=== PATIENT | male | born 1930 | race Caucasian/White ===

== ENCOUNTER 2016-08-01 07:38 | Day surgery (SDC) | payer MEDICARE ==
[2016-07-27 11:34] VITALS: BMI 29.0
[~2016-08-01 07:38] MED LIST: LACTATED RINGERS 1,000 ML IV SCH; LIDOCAINE 1% 20 ML VIAL (10MG/ML) FOR IV START INTRADERMA PRN
[2016-08-01 08:06] VITALS: TEMP 97.3
[2016-08-01] MEDS ORDERED: LIDOCAINE 1% 20 ML VIAL (10MG/ML) FOR IV START INTRADERMA ONE (08:15)
[2016-08-01] MEDS ORDERED: PROPOFOL 10 MG/ML 20 ML VIAL IV ONE (08:48)
--- NOTE | 2016-08-01 08:49 | P.GSHP ---
History of Present Illness H&P Date: 08/01/16 Chief Complaint: GERD This a 86-year-old male referred from Dr. Vickie frey. Patient presents today for EGD. He's had issues with GERD. The patient states he has had GERD for several years. His GERD has worsened over the last 6 months. - Constitutional Constitutional: Reports as per HPI Past Medical History Past Medical History: CVA/TIA, GERD/Reflux, Hyperlipidemia, Hypertension Additional Past Medical History / Comment(s): abdominal discomfort and gas pains History of Any Multi-Drug Resistant Organisms: None Reported Past Surgical History: Cholecystectomy, Coronary Bypass/CABG, Hernia Repair, Joint Replacement Additional Past Surgical History / Comment(s): aortic aneurysm repair, rt knee replacement Past Anesthesia/Blood Transfusion Reactions: No Reported Reaction Smoking Status: Former smoker Past Alcohol Use History: Occasional Additional Past Alcohol Use History / Comment(s): smoked 20 years <1ppd quit 1983 Past Drug Use History: None Reported - Past Family History Brother(s) Family Medical History: Cancer Additional Family Medical History / Comment(s): 1 brother-leukemia. 1 brother- renal cancer Medications and Allergies Home Medications Medication Instructions Recorded Confirmed Type Aspirin [Adult Low Dose Aspirin EC] 81 mg PO DAILY 07/27/16 08/01/16 History Clopidogrel [Plavix] 75 mg PO DAILY 07/27/16 08/01/16 History Lisinopril [Zestril] 10 mg PO DAILY 07/27/16 08/01/16 History Metoprolol Tartrate 25 mg PO BID 07/27/16 08/01/16 History Omeprazole [PriLOSEC] 20 mg PO AC-BID 07/27/16 08/01/16 History Simvastatin [Zocor] 20 mg PO DAILY 07/27/16 08/01/16 History Verapamil HCl [Verapamil ER] 180 mg PO DAILY 07/27/16 08/01/16 History Allergies Allergy/AdvReac Type Severity Reaction Status Date / Time No Known Allergies Allergy Verified 08/01/16 08:09 Surgical - Exam Vital Signs Temp Pulse Resp BP Pulse Ox 97.3 F L 71 18 139/77 94 L 08/01/16 08:04 08/01/16 08:04 08/01/16 08:04 08/01/16 08:04 08/01/16 08:04 - General well developed, no distress - Eyes PERRL - ENT normal pinna - Neck no masses - Respiratory normal expansion - Cardiovascular Rhythm: regular - Abdomen Abdomen: soft, non tender Assessment and Plan Plan: GERD. We'll perform EGD.
--- NOTE | 2016-08-01 09:01 | P.OP ---
Date of Procedure: 08/01/16 Preoperative Diagnosis: GERD Postoperative Diagnosis: Antral gastritis Moderate size hiatal hernia Esophagitis Procedure(s) Performed: EGD Anesthesia: MAC Surgeon: Parminder Michel Pathology: other (Antrum, esophagus) Condition: stable Disposition: PACU Description of Procedure: The patient's placed on the endoscopy table in the lateral position. He received IV sedation. The gastroscope some placed oropharynx passed into the esophagus and stomach. Scope was then placed through the pylorus. The first and second portion of the duodenum appeared normal. Scope was then brought back and the antrum and this appeared mildly inflamed. Scope was then retroflexed and the remainder some appeared normal. The GE junction was at 38 7 is. There was a moderate size hiatal hernia. The distal esophagus. Inflamed a biopsies performed. The proximal esophagus appeared normal. Scope was withdrawn for patient.
[2016-08-01 09:03] VITALS: RESP 16
[2016-08-01 09:27] VITALS: BP 112/69; PULSE 56
== END 2016-08-01 09:32 | disposition home or self-care (01) ==
LOC: ORWHC2ENDO 07:38
PROVIDERS: ATTEND Surgery
DX: K21.0 Gastro-esophageal reflux disease with esophagitis (principal); K29.50 Unspecified chronic gastritis without bleeding; K44.9 Diaphragmatic hernia without obstruction or gangrene; E78.5 Hyperlipidemia, unspecified; I10 Essential (primary) hypertension; Z86.73 Personal history of transient ischemic attack (TIA), and cerebral infarction without residual deficits; Z95.1 Presence of aortocoronary bypass graft; Z79.02 Long term (current) use of antithrombotics/antiplatelets; Z79.82 Long term (current) use of aspirin; Z79.899 Other long term (current) drug therapy; Z87.891 Personal history of nicotine dependence
CPT/HCPCS: 88305; 88342; 43239; J2704